=== PATIENT | female | born 1935 | race African-American/Black ===

== ENCOUNTER 2016-09-10 20:54 | Emergency (ER) | payer MEDICARE ==
[~2016-09-10] VITALS: Ht 172.7 cm; Wt 104.3 kg
[~2016-09-10 20:54] MED LIST: CHOL500016 PO; LETR2.5T18 PO; LEVO50TA5 PO; LOSA100T6 PO; METF500T4 PO; TIMO5SOL OP; TRAV5DRO OP; TRIA1TAB5 PO
[2016-09-10 21:25] LABS: BILIRUBIN,URINE NEGATIVE (NEG); GLUCOSE,URINE NEGATIVE (NEG); NITRITE,URINE NEGATIVE (NEG); PROTEIN,URINE NEGATIVE (NEG-TRACE); UROBILINOGEN,URINE 0.2 mg/dL (0.2 mg/dL)
[2016-09-10 21:32] LABS: BACTERIA,URINE FEW /HPF (0-FEW); SQUAMOUS EPITHELIAL CELL,UR FEW /LPF; WBC,URINE TNTC /HPF (0-4)
[2016-09-10 21:46] LABS: BASO # 0.1 x10^3/uL (0.0-0.2); BASO % 1 % (0-3); EOS % 1 % (0-3); HEMOGLOBIN 13.4 g/dL (12.0-15.5); LYMPH # 2.1 x10^3/uL (1.0-4.8); LYMPH % 33 % (24-48); MEAN CORPUSCULAR HEMOGLOBIN 29 pg (25-35); MEAN CORPUSCULAR HGB CONC 34 g/dL (31-37); MEAN CORPUSCULAR VOLUME 87 fL (79-100); MONO % 12 % (0-9); NEUT % 52 % (31-73); PLATELET COUNT 218 x10^3/uL (140-400); RED BLOOD COUNT 4.58 x10^6/uL (3.50-5.40); RED CELL DISTRIBUTION WIDTH 14.7 % (11.5-14.5); WHITE BLOOD COUNT 6.4 x10^3/uL (4.0-11.0)
[2016-09-10 21:49] VITALS: BP 134/61
[2016-09-10 21:59] LABS: CALCIUM 10.1 mg/dL (8.5-10.1); CREATININE 1.5 mg/dL (0.6-1.0); GFR 40.2; POTASSIUM 3.4 mmol/L (3.5-5.1)
[2016-09-10 22:03] LABS: ALBUMIN 3.8 g/dL (3.4-5.0); ALBUMIN/GLOBULIN RATIO 1.1 (1.0-1.7); TOTAL BILIRUBIN 0.6 mg/dL (0.2-1.0); TOTAL PROTEIN 7.2 g/dL (6.4-8.2)
[2016-09-10] MEDS ORDERED: CIPR250T30 PO (22:21)
--- NOTE | 2016-09-10 22:21 | PHYS DOC ---
Past Medical History Past Medical History: Cancer, Hypertension, Hypothyroid Additional Past Medical Histor: breast CA, glaucoma Past Surgical History: Other Additional Past Surgical Histo: eye stent pack left eye, breast lymphnodes and lumpectomy Alcohol Use: Occasionally Drug Use: None Adult General Chief Complaint Chief Complaint: nausea, vomiting HPI HPI Patient is a 81 year old female who states she has not been feeling very well for 2 or 3 days. Last year about this time she was feeling about like this and it turned out that she had renal failure so she wanted to come in and get it checked out. She has been feeling a little queasy to her stomach and has vomited once. She has felt a little dizzy and lightheaded and a little bit weak. She's been eating okay and drinking plenty of fluids. She's been taking her medications as prescribed. About 3 months ago her triamterene/ hydrochlorothiazide was increased and she has been taking that as prescribed. Last year they stopped her metformin and she has stayed off metformin as instructed since that episode last year. She has no other complaints at this time. She has a history of diabetes, hypertension. PCP Dr. Sousa Review of Systems Review of Systems Constitutional: Denies fever or chills [] Eyes: Denies change in visual acuity, redness, or eye pain [] HENT: Denies nasal congestion or sore throat [] Respiratory: Denies cough or shortness of breath [] Cardiovascular: Denies chest pain or edema GI: As in history of present illness : Denies dysuria or hematuria [] Musculoskeletal: Denies back pain or joint pain [] Integument: Denies rash or skin lesions [] Neurologic: Denies headache, focal weakness or sensory changes [] Current Medications Current Medications Current Medications Medications (Trade) Dose Ordered Sig/Karen Start Time Stop Time Status Last Admin Dose Admin Ciprofloxacin (Cipro) 250 mg 1X ONCE 09/10/16 23:00 09/10/16 23:00 DC 09/10/16 22:31 250 MG Allergies Allergies Allergies Coded Allergies Type Severity Reaction Last Updated Verified Sulfa (Sulfonamide Antibiotics) Adverse Reaction Intermediate LOSS OF CONSCIOUSNESS 09/12/13 Yes Physical Exam Physical Exam Constitutional: Well developed, well nourished, no acute distress, non-toxic appearance. Alert, mentating normally. HENT: Normocephalic, atraumatic, bilateral external ears normal, nose normal. [] Eyes: conjunctiva normal, no discharge. [] Neck: Normal range of motion, no stridor. [] Cardiovascular:Heart rate regular rhythm, no murmur [] Lungs & Thorax: Bilateral breath sounds clear to auscultation [] Abdomen: Bowel sounds normal, soft, no tenderness, no masses, no pulsatile masses. [] Skin: Warm, dry, no erythema, no rash. [] Extremities: No tenderness, no cyanosis, no clubbing, ROM intact, no edema. [] Neurologic: Alert and oriented X 3, normal motor function, normal sensory function, no focal deficits noted. [] Current Patient Data Vital Signs Vital Signs Date Time Temp Pulse Resp B/P Pulse Ox O2 Delivery O2 Flow Rate FiO2 09/10/16 21:49 65 16 134/61 96 Room Air 09/10/16 20:58 97.5 97.5 Lab Values Laboratory Tests Test 09/10/16 21:00 09/10/16 21:30 Urine Collection Type Unknown Urine Color Yellow Urine Clarity Clear Urine pH 7.0 Urine Specific [place] 1.010 Urine Protein Negativemg/dL (NEG-TRACE) Urine Glucose (UA) Negativemg/dL (NEG) Urine Ketones (Stick) Negativemg/dL (NEG) Urine Blood Small (NEG) Urine Nitrite Negative (NEG) Urine Bilirubin Negative (NEG) Urine Urobilinogen Dipstick 0.2mg/dL (0.2 mg/dL) Urine Leukocyte Esterase Large (NEG) Urine RBC 1-2/HPF (0-2) Urine WBC Tntc/HPF (0-4) Urine Squamous Epithelial Cells Few/LPF Urine Transitional Epithelial Cells Occ/LPF Urine Bacteria Few/HPF (0-FEW) Urine Hyaline Casts Few/HPF Urine Mucus Slight/LPF White Blood Count 6.4x10^3/uL (4.0-11.0) Red Blood Count 4.58x10^6/uL (3.50-5.40) Hemoglobin 13.4g/dL (12.0-15.5) Hematocrit 40.0% (36.0-47.0) Mean Corpuscular Volume 87fL (79-100) Mean Corpuscular Hemoglobin 29pg (25-35) Mean Corpuscular Hemoglobin Concent 34g/dL (31-37) Red Cell Distribution Width 14.7% (11.5-14.5) H Platelet Count 218x10^3/uL (140-400) Neutrophils (%) (Auto) 52% (31-73) Lymphocytes (%) (Auto) 33% (24-48) Monocytes (%) (Auto) 12% (0-9) H Eosinophils (%) (Auto) 1% (0-3) Basophils (%) (Auto) 1% (0-3) Neutrophils # (Auto) 3.4x10^3uL (1.8-7.7) Lymphocytes # (Auto) 2.1x10^3/uL (1.0-4.8) Monocytes # (Auto) 0.8x10^3/uL (0.0-1.1) Eosinophils # (Auto) 0.1x10^3/uL (0.0-0.7) Basophils # (Auto) 0.1x10^3/uL (0.0-0.2) Sodium Level 140mmol/L (136-145) Potassium Level 3.4mmol/L (3.5-5.1) L Chloride Level 102mmol/L (98-107) Carbon Dioxide Level 27mmol/L (21-32) Anion Gap 11 (6-14) Blood Urea Nitrogen 23mg/dL (7-20) H Creatinine 1.5mg/dL (0.6-1.0) H Estimated GFR (Cockcroft-Gault) 40.2 BUN/Creatinine Ratio 15 (6-20) Glucose Level 127mg/dL (70-99) H Calcium Level 10.1mg/dL (8.5-10.1) Total Bilirubin 0.6mg/dL (0.2-1.0) Aspartate Amino Transferase (AST) 16U/L (15-37) Alanine Aminotransferase (ALT) 20U/L (14-59) Alkaline Phosphatase 78U/L (46-116) Total Protein 7.2g/dL (6.4-8.2) Albumin 3.8g/dL (3.4-5.0) Albumin/Globulin Ratio 1.1 (1.0-1.7) Laboratory Tests 09/10/16 21:30 Laboratory Tests 09/10/16 21:30 EKG EKG [] Radiology/Procedures Radiology/Procedures [] Course & Med Decision Making Course & Med Decision Making Pertinent Labs and Imaging studies reviewed. (See chart for details) 81-year-old female who has had some nonspecific symptoms of not feeling well, dizziness, nausea, one episode of vomiting. She appears well in the ED. Labs are unremarkable when compared to previous episode of acute renal failure, today her creatinine is very stable at 1.5. However urinalysis is positive for UTI which certainly may be the cause of her symptoms. We will start her on Cipro. Discussed this with the patient as well as return precautions. She was given her first dose in the ED. [] Dragon Disclaimer Dragon Disclaimer This electronic medical record was generated, in whole or in part, using a voice recognition dictation system. Departure Departure Impression: Primary Impression: UTI (urinary tract infection) Disposition: HOME, SELF-CARE Condition: STABLE Referrals: ROXANA SOUSA MD (PCP) Patient Instructions: Urinary Tract Infection, [id number] Additional Instructions: Today, lab tests showed that you have a urinary tract infection, also called a bladder infection. We will start antibiotics and treat for 7 days. If you start running a fever, if you feel worse instead of better, if you are vomiting more and feel dehydrated or can't keep down your antibiotics, you might need to be admitted to the hospital. If so, return to emergency. Your next antibiotic dose is due in 12 hours, approximately 10 AM on Sunday. Follow-up with your primary care doctor for a recheck of your urine after your antibiotics are all finished. Scripts Ciprofloxacin Hcl (Cipro)250 Mg Tablet1 Tab PO BID #14 TAB Antibiotic For urinary tract infection Prov:DEN LEE MD 09/10/16 DEN LEE MD Sep 10, 2016 22:21
[2016-09-10] MEDS ORDERED: CIPROFLOXACIN HCL 250 MG TABLET PO ONE (23:00)
--- NOTE | 2016-09-11 07:03 | EKG ---
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
== END 2016-09-10 22:32 | disposition home or self-care (01) ==
LOC: ER 20:54
DX: N39.0 Urinary tract infection, site not specified (principal); I10 Essential (primary) hypertension; E03.9 Hypothyroidism, unspecified; E11.9 Type 2 diabetes mellitus without complications; Z88.2 Allergy status to sulfonamides
CPT/HCPCS: 36415; 80053; 81001; 85027; 87086; 93005; 99285-25

== ENCOUNTER 2017-06-29 23:37 | Emergency (ER) | payer BC ==
[2017-06-30 00:36] LABS: ADD MAN DIFF? NO
[2017-06-30] MEDS: cloNIDine HCL 0.1 MG TABLET PO (00:38)
[2017-06-30 00:53] LABS: BASO % 1 % (0-3); EOS # 0.1 x10^3/uL (0.0-0.7); EOS % 2 % (0-3); HEMATOCRIT 41.4 % (36.0-47.0); HEMOGLOBIN 13.5 g/dL (12.0-15.5); LYMPH # 2.8 x10^3/uL (1.0-4.8); LYMPH % 48 % (24-48); MEAN CORPUSCULAR HEMOGLOBIN 29 pg (25-35); MEAN CORPUSCULAR HGB CONC 33 g/dL (31-37); MEAN CORPUSCULAR VOLUME 90 fL (79-100); MONO # 0.6 x10^3/uL (0.0-1.1); MONO % 10 % (0-9); NEUT # 2.3 x10^3uL (1.8-7.7); NEUT % 40 % (31-73); PLATELET COUNT 211 x10^3/uL (140-400); RED CELL DISTRIBUTION WIDTH 14.8 % (11.5-14.5); WHITE BLOOD COUNT 5.8 x10^3/uL (4.0-11.0)
[2017-06-30 02:22] LABS: ANION GAP 12 (6-14); BLOOD UREA NITROGEN 13 mg/dL (7-20); BUN/CREATININE RATIO 16 (6-20); CALCIUM 9.4 mg/dL (8.5-10.1); CARBON DIOXIDE 26 mmol/L (21-32); CHLORIDE 103 mmol/L (98-107); CREATININE 0.8 mg/dL (0.6-1.0); GFR 82.9; GLUCOSE 121 mg/dL (70-99); POTASSIUM 3.4 mmol/L (3.5-5.1); SODIUM 141 mmol/L (136-145)
[2017-06-30 02:26] LABS: ALBUMIN 3.6 g/dL (3.4-5.0); ALBUMIN/GLOBULIN RATIO 1.1 (1.0-1.7); ALK PHOS 61 U/L (46-116); ALT (SGPT) 14 U/L (14-59); AST (SGOT) 19 U/L (15-37); MAGNESIUM 1.9 mg/dL (1.8-2.4); TOTAL BILIRUBIN 0.8 mg/dL (0.2-1.0)
[2017-06-30 02:28] LABS: CKMB INDEX 1.1 % (0-4); CKMB MASS 0.7 ng/mL (0.0-3.6); CREATINE KINASE 66 U/L (26-192)
[2017-06-30 02:28] LABS: NT-PRO BNP 120 pg/mL (0-449)
[2017-06-30 02:29] LABS: TROPONINI < 0.017 ng/mL (0.000-0.055)
== END 2017-06-30 02:41 | disposition home or self-care (01) ==
LOC: ER 23:37
DX: I10 Essential (primary) hypertension (principal); E03.9 Hypothyroidism, unspecified; H40.9 Unspecified glaucoma; Z85.3 Personal history of malignant neoplasm of breast; Z88.2 Allergy status to sulfonamides
CPT/HCPCS: 36415; 71045; 80053; 82553; 83735; 83880; 84484; 85025; 93005; 99285-25

== ENCOUNTER 2018-06-29 16:52 | Emergency (ER) | payer BC ==
[~2018-06-29] VITALS: Ht 170.2 cm; Wt 102.1 kg
[~2018-06-29 16:52] MED LIST changes: +CIPR250T30 PO; +LOSA100T14 PO; -LOSA100T6 PO; +METF500T16 PO; -METF500T4 PO; -TIMO5SOL OP; +TIMO5SOL9 OP
[2018-06-29 18:02] LABS: BASO # 0.1 x10^3/uL (0.0-0.2); BASO % 1 % (0-3); EOS # 0.1 x10^3/uL (0.0-0.7); EOS % 2 % (0-3); HEMATOCRIT 38.6 % (36.0-47.0); HEMOGLOBIN 13.4 g/dL (12.0-15.5); LYMPH # 2.3 x10^3/uL (1.0-4.8); LYMPH % 47 % (24-48); MEAN CORPUSCULAR HEMOGLOBIN 31 pg (25-35); MEAN CORPUSCULAR HGB CONC 35 g/dL (31-37); MEAN CORPUSCULAR VOLUME 90 fL (79-100); MONO # 0.6 x10^3/uL (0.0-1.1); MONO % 12 % (0-9); NEUT # 1.8 x10^3uL (1.8-7.7); NEUT % 38 % (31-73); PLATELET COUNT 194 x10^3/uL (140-400); RED BLOOD COUNT 4.29 x10^6/uL (3.50-5.40); RED CELL DISTRIBUTION WIDTH 14.4 % (11.5-14.5); WHITE BLOOD COUNT 4.8 x10^3/uL (4.0-11.0)
[2018-06-29 18:11] LABS: CALCIUM 9.9 mg/dL (8.5-10.1); GFR 63.9; POTASSIUM 3.6 mmol/L (3.5-5.1)
[2018-06-29 18:14] LABS: BILIRUBIN,URINE NEGATIVE (NEG); CLARITY,URINE CLEAR; COLOR,URINE YELLOW; NITRITE,URINE NEGATIVE (NEG); PROTEIN,URINE NEGATIVE (NEG-TRACE); UROBILINOGEN,URINE 0.2 mg/dL (0.2 mg/dL)
[2018-06-29 18:26] LABS: BACTERIA,URINE 0 /HPF (0-FEW); RBC,URINE OCC /HPF (0-2); SQUAMOUS EPITHELIAL CELL,UR OCC /LPF
--- NOTE | 2018-06-29 18:41 | PHYS DOC ---
Past Medical History Past Medical History: Cancer, Hypertension, Hypothyroid Additional Past Medical Histor: breast CA, glaucoma Past Surgical History: Other Additional Past Surgical Histo: eye stent pack left eye, breast lymphnodes and lumpectomy Alcohol Use: Occasionally Drug Use: None Adult General Chief Complaint Chief Complaint: HYPERTENSION HPI HPI Patient is a 83 year old female with history of hypertension, hypothyroidism, who presents today complaining of high blood pressure. Patient states since yesterday her blood pressures have been running above 130s but she does not remember the actual numbers, neither that she remember the diastolic numbers. She states the more she checks her blood pressures the more she gets anxious. She is currently on Triamterene/HCTZ 75/50 mg, and Losartan 100 mg. She states she takes her blood pressure medications as well as BPs religiously. Patient denies any chest pain, denies any shortness of breath, denies any headache. PCP Dr. Lang Review of Systems Review of Systems Constitutional: Denies fever or chills [] Eyes: Denies change in visual acuity, redness, or eye pain [] HENT: Denies nasal congestion or sore throat [] Respiratory: Denies cough or shortness of breath [] Cardiovascular: Reports high blood pressure. No additional information not addressed in HPI [] GI: Denies abdominal pain, nausea, vomiting, bloody stools or diarrhea [] : Denies dysuria or hematuria [] Musculoskeletal: Denies back pain or joint pain [] Integument: Denies rash or skin lesions [] Neurologic: Denies headache, focal weakness or sensory changes [] All other systems were reviewed and found to be within normal limits, except as documented in this note. Allergies Allergies Allergies Coded Allergies Type Severity Reaction Last Updated Verified Sulfa (Sulfonamide Antibiotics) Adverse Reaction Intermediate LOSS OF CONSCIOUSNESS 09/12/13 Yes Physical Exam Physical Exam Constitutional: Well developed, well nourished, no acute distress, non-toxic appearance. [] HENT: Normocephalic, atraumatic, bilateral external ears normal, oropharynx moist, no oral exudates, nose normal. [] Eyes: PERRLA, EOMI, conjunctiva normal, no discharge. [] Neck: Normal range of motion, no tenderness, supple, no stridor. [] Cardiovascular:Heart rate regular rhythm, no murmur [] Lungs & Thorax: Bilateral breath sounds clear to auscultation [] Abdomen: Bowel sounds normal, soft, no tenderness, no masses, no pulsatile masses. [] Skin: Warm, dry, no erythema, no rash. [] Back: No tenderness, no CVA tenderness. [] Extremities: No tenderness, no cyanosis, no clubbing, ROM intact, no edema. [] Neurologic: Alert and oriented X 3, normal motor function, normal sensory function, no focal deficits noted. [] Psychologic: Affect normal, judgement normal, mood normal. [] Current Patient Data Vital Signs Vital Signs Date Time Temp Pulse Resp B/P (MAP) Pulse Ox O2 Delivery O2 Flow Rate FiO2 06/29/18 17:18 97.5 72 20 160/67 (98) 98 Room Air 97.5 Lab Values Laboratory Tests Test 06/29/18 17:50 06/29/18 18:00 White Blood Count 4.8 x10^3/uL (4.0-11.0) Red Blood Count 4.29 x10^6/uL (3.50-5.40) Hemoglobin 13.4 g/dL (12.0-15.5) Hematocrit 38.6 % (36.0-47.0) Mean Corpuscular Volume 90 fL (79-100) Mean Corpuscular Hemoglobin 31 pg (25-35) Mean Corpuscular Hemoglobin Concent 35 g/dL (31-37) Red Cell Distribution Width 14.4 % (11.5-14.5) Platelet Count 194 x10^3/uL (140-400) Neutrophils (%) (Auto) 38 % (31-73) Lymphocytes (%) (Auto) 47 % (24-48) Monocytes (%) (Auto) 12 % (0-9) H Eosinophils (%) (Auto) 2 % (0-3) Basophils (%) (Auto) 1 % (0-3) Neutrophils # (Auto) 1.8 x10^3uL (1.8-7.7) Lymphocytes # (Auto) 2.3 x10^3/uL (1.0-4.8) Monocytes # (Auto) 0.6 x10^3/uL (0.0-1.1) Eosinophils # (Auto) 0.1 x10^3/uL (0.0-0.7) Basophils # (Auto) 0.1 x10^3/uL (0.0-0.2) Sodium Level 140 mmol/L (136-145) Potassium Level 3.6 mmol/L (3.5-5.1) Chloride Level 102 mmol/L (98-107) Carbon Dioxide Level 30 mmol/L (21-32) Anion Gap 8 (6-14) Blood Urea Nitrogen 13 mg/dL (7-20) Creatinine 1.0 mg/dL (0.6-1.0) Estimated GFR (Cockcroft-Gault) 63.9 Glucose Level 108 mg/dL (70-99) H Calcium Level 9.9 mg/dL (8.5-10.1) Magnesium Level 2.0 mg/dL (1.8-2.4) Troponin I Quantitative < 0.017 ng/mL (0.000-0.055) KF-Rry-B-Type Natriuretic Peptide 112 pg/mL (0-449) Urine Collection Type Unknown Urine Color Yellow Urine Clarity Clear Urine pH 7.0 Urine Specific [place] <=1.005 Urine Protein Negative mg/dL (NEG-TRACE) Urine Glucose (UA) Negative mg/dL (NEG) Urine Ketones (Stick) Negative mg/dL (NEG) Urine Blood Trace (NEG) Urine Nitrite Negative (NEG) Urine Bilirubin Negative (NEG) Urine Urobilinogen Dipstick 0.2 mg/dL (0.2 mg/dL) Urine Leukocyte Esterase Moderate (NEG) Urine RBC Occ /HPF (0-2) Urine WBC 1-4 /HPF (0-4) Urine Squamous Epithelial Cells Occ /LPF Urine Bacteria 0 /HPF (0-FEW) Laboratory Tests 06/29/18 17:50 Laboratory Tests 06/29/18 17:50 EKG EKG [] Radiology/Procedures Radiology/Procedures [] Course & Med Decision Making Course & Med Decision Making Pertinent Labs and Imaging studies reviewed. (See chart for details) This is a 83-year-old female patient presenting to the ED concerned her blood pressure has been running high since yesterday. She is on several blood pressure medicines including triamterene/HCTZ and losartan. She has no other symptoms including no chest pain, no shortness of breath, no headache. Blood pressure arrival to the ED 160/67 with a heart rate of 63. Patient is in no distress. CBC BMP would not acute findings, urine analysis is noted for UTI. Discharged on cephalexin. Encouraged to continue taking her blood pressure medicines and follow-up with her PCP in the course of this coming week. Provided return precautions and discharged in stable condition. Dragon Disclaimer Dragon Disclaimer This electronic medical record was generated, in whole or in part, using a voice recognition dictation system. Departure Departure Impression: Primary Impression: UTI (urinary tract infection) Additional Impression: Hypertension Disposition: HOME, SELF-CARE Condition: STABLE Referrals: RORY LANG MD (PCP) follow up next week Patient Instructions: Hypertension, Urinary Tract Infection Additional Instructions: You were evaluated in the emergency room for high blood pressure. Continue taking her blood pressure medications as prescribed by your doctor. You also have urinary tract infection, complete the prescribed antibiotics. Follow up with your primary care doctor in the course of this coming week. Please come back to the emergency room at any point symptoms worsen or you have new concerning symptoms. Scripts Cephalexin (CEPHALEXIN) 500 Mg Tablet 1 TAB PO BID, #14 TAB Prov: VIDAL RHODES APRN 06/29/18 Problem Qualifiers Primary Impression: UTI (urinary tract infection) Urinary tract infection type: site unspecified Hematuria presence: without hematuria Qualified Codes: N39.0 - Urinary tract infection, site not specified Additional Impression: Hypertension Hypertension type: unspecified Qualified Codes: I10 - Essential (primary) hypertension VIDAL RHODES APRN Jun 29, 2018 18:41
--- NOTE | 2018-06-29 18:42 | EKG ---
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
[2018-06-29 18:43] VITALS: BP 155/84
[2018-06-29] MEDS ORDERED: CEPH500T PO (18:51)
== END 2018-06-29 19:15 | disposition home or self-care (01) ==
LOC: ER 16:52
DX: I10 Essential (primary) hypertension (principal); N39.0 Urinary tract infection, site not specified; E03.9 Hypothyroidism, unspecified; Z88.2 Allergy status to sulfonamides
CPT/HCPCS: 36415; 80048; 81001; 83735; 83880; 84443; 84484; 85025; 93005; 99284

== ENCOUNTER → 2021-02-22 | Outpatient (CLI) | payer BC, MEDICARE ==
[~2021-02-22] MED LIST changes: +CEPH500T PO; -LETR2.5T18 PO; +LETROZOLE2.5 MG PO
--- NOTE | 2021-02-22 17:05 | CARD ---
MR#: [id number] Date of Study: 02/22/2021 Ordering Physician: RORY LANG, Referring Physician: RORY LANG, Tech: Shannen Mac, [facility] APPROVED REPORT EXAM: Two-dimensional and M-mode echocardiogram with Doppler and color Doppler. Other Information Quality : AverageHR: 78bpm INDICATION Peripheral Edema RISK FACTORS Hypertension Aortic Valve AoV Peak Dmitry.121.0cm/sAoV VTI24.0cm AO Peak GR.5.9mmHgLVOT Peak Dmitry.72.9cm/s LVOT VTI 20.37cmAO Mean GR.3mmHg Mitral Valve MV E Qvadaogy46.7cm/sMV DECEL [id number] MV A Qbibbuum29.1cm/sMV E Mean Gr.1mmHg MV QPG38ylI/A Ratio0.8 MVA (PHT)3.59cm2 TDI E/Lateral E'11.2E/Medial E'8.9 Pulmonary Valve PV Peak Rlqrwlyq206.3cm/sPV Peak Grad.5mmHg Tricuspid Valve TR P. [id number]/sRAP [id number] TR Peak Gr.55njWtLPMS08hyYy Pulmonary Vein S1 Xqgnmpwv03.4cm/sD2 Zewznxnb96.7cm/s PVa [id number] LEFT VENTRICLE The left ventricle is normal size. There is normal left ventricular wall thickness. The left ventricu lar systolic function is normal. The Ejection Fraction is 60-65%. There is normal LV segmental wall m otion. Transmitral Doppler flow pattern is Grade I-abnormal relaxation pattern. RIGHT VENTRICLE The right ventricle is borderline dilated. There is normal right ventricular wall thickness. The righ t ventricular systolic function is normal. ATRIA The left atrium is borderline dilated. The right atrium size is normal. The interatrial septum is int act with no evidence for an atrial septal defect or patent foramen ovale as noted on 2-D or Doppler i maging. AORTIC VALVE The aortic valve is normal in structure and function. Doppler and Color Flow revealed trace aortic re gurgitation. There is no significant aortic valvular stenosis with maximum pressure gradient of 7 mmH g and mean pressure gradient of 3 mmHg. MITRAL VALVE The mitral valve is normal in structure and function. There is no evidence of mitral valve prolapse. There is no mitral valve stenosis. Doppler and Color-flow revealed trace mitral regurgitation. TRICUSPID VALVE The tricuspid valve is normal in structure and function. Doppler and Color Flow revealed trace tricus pid regurgitation with an estimated PAP of 46 mmHg. There is no tricuspid valve stenosis. PULMONIC VALVE The pulmonary valve is normal in structure and function. Doppler and Color Flow revealed trace pulmon ic valvular regurgitation. GREAT VESSELS The aortic root is normal in size. The IVC is normal in size and collapses >50% with inspiration. PERICARDIAL EFFUSION There is no evidence of significant pericardial effusion. Critical Notification Critical Value: No <Conclusion> The left ventricular systolic function is normal. The Ejection Fraction is 60-65%. There is normal LV segmental wall motion. Transmitral Doppler flow pattern is Grade I-abnormal relaxation pattern. Trace mitral regurgitation. Trace tricuspid regurgitation with an estimated PAP of 46 mmHg. There is no evidence of significant pericardial effusion. Signed by : Tra Porras, Electronically Approved : 02/22/2021 17:04:45
== END ==
LOC: ECHO 13:45
PROVIDERS: ATTEND Family Medicine
DX: I12.9 Hypertensive chronic kidney disease with stage 1 through stage 4 chronic kidney disease, or unspecified chronic kidney disease (principal); N18.9 Chronic kidney disease, unspecified; M79.89 Other specified soft tissue disorders
CPT/HCPCS: 93306